=== PATIENT | female | born 1990 | race Caucasian/White ===

== ENCOUNTER → 2017-06-11 | Outpatient (CLI) | payer OTHER ==
--- NOTE | 2017-06-11 13:35 | MR ---
EXAMINATION TYPE: MR knee LT wo con DATE OF EXAM: 06/11/2017 COMPARISON: Radiographs 05/21/2017 HISTORY: 27-year-old female with left knee pain TECHNIQUE: Multiplanar, multisequence imaging of the left knee is performed without IV contrast. FINDINGS: The ACL appears torn. There is anterior tibial translation. Edema on either side of the intact MCL. PCL appears intact. There is thickening and intermediate signal involving the femoral attachment of t he LCL proper but the LCL complex otherwise appears intact. The medial meniscus is diffusely degenerative and torn with a bucket-handle fragment flipped anterior ly. There seems to be mild thinning of articular cartilage in the medial compartment and there is als o a subchondral impaction fracture of the mid peripheral aspect of the medial tibial plateau measurin g 1.4 cm wide and 1.6 cm AP with surrounding bone marrow and soft tissue edema. This seems to result in minimal 1 to 2 mm of articular surface depression. There appears to be a large radial tear of the posterior horn of the lateral meniscus near the attach ment of the meniscofemoral ligament. Lateral compartment and patellofemoral compartment articular cartilage appears maintained. Moderate to large knee joint effusion and a moderate-sized leaking Blackmon's cyst measuring 5.6 cm. Extensor mechanism is intact. Nonspecific anterior and infrapatellar soft tissue swelling. Minimal popliteal artery anatomy with mild diffuse muscular atrophy. Patchy red marrow hyperplasia is present compatible with patient's young age. IMPRESSION: 1 ACL tear. 2. Grade 1 MCL sprain and additional grade 1 sprain of the femoral attachment of the LCL proper. 3. Diffusely torn medial meniscus with a bucket-handle fragment flipped anteriorly. 4. Subchondral impaction fracture mid peripheral medial tibial plateau measuring 1.4 x 1.6 cm. Slight articular surface depression of 1 to 2 mm. 5. Large radial tear posterior horn lateral meniscus. 6. Moderate to large knee joint effusion and a moderate-sized leaking Blackmon's cyst. 7. Mild diffuse muscular atrophy.
== END | disposition home or self-care (01) ==
LOC: RADMRIMAIN 11:13
PROVIDERS: ATTEND Orthopaedic Surgery
DX: S83.212A Bucket-handle tear of medial meniscus, current injury, left knee, initial encounter (principal); S83.512A Sprain of anterior cruciate ligament of left knee, initial encounter; S83.412A Sprain of medial collateral ligament of left knee, initial encounter; S83.282A Other tear of lateral meniscus, current injury, left knee, initial encounter; M25.462 Effusion, left knee; M71.22 Synovial cyst of popliteal space [Baker], left knee; S82.142A Displaced bicondylar fracture of left tibia, initial encounter for closed fracture

== ENCOUNTER → 2017-08-20 | Outpatient (CLI) | payer OTHER ==
[2017-08-20 14:40] LABS: Basophils # (A) 0.1 k/uL (0-0.2); Basophils % (A) 1 %; Eosinophils # (A) 0.4 k/uL (0-0.7); Eosinophils % (A) 3 %; HGB 14.3 gm/dL (11.4-16.0); Lymphocytes # (A) 2.1 k/uL (1.0-4.8); Lymphocytes % (A) 18 %; MCH 27.6 pg (25.0-35.0); MCHC 32.4 g/dL (31.0-37.0); MCV 85.3 fL (80.0-100.0); Mean Platelet Volume 8.7; Monocytes # (A) 0.6 k/uL (0-1.0); Monocytes % (A) 5 %; Neutrophils # (A) 8.7 k/uL (1.3-7.7); Neutrophils % (A) 73 %; Platelet Count 278 k/uL (150-450); RBC 5.16 m/uL (3.80-5.40); RDW 13.3 % (11.5-15.5)
[2017-08-20 14:42] LABS: INR 1.1 (<1.2); Prothrombin Time 10.4 sec (9.0-12.0)
[2017-08-20 15:06] LABS: Potassium 4.5 mmol/L (3.5-5.1)
== END | disposition home or self-care (01) ==
LOC: LABPAT 14:01
PROVIDERS: ATTEND Orthopaedic Surgery
DX: Z01.812 Encounter for preprocedural laboratory examination (principal); M23.92 Unspecified internal derangement of left knee
CPT/HCPCS: 36415; 80051; 85025; 85610

== ENCOUNTER 2017-08-25 06:47 | Day surgery (SDC) | payer OTHER ==
--- NOTE | 2017-08-16 10:06 | HP ---
HISTORY AND PHYSICAL CHIEF COMPLAINT: Left knee pain. HISTORY OF PRESENT ILLNESS: The patient is a 27-year-old, [id number] mom, who presents with left knee pain after initial injury on March 29, 2017. She had a twisting injury. She notes locking, giving way and pain ever since. She is having a difficult time. She notes she is limping. She denies previous problems. PAST MEDICAL HISTORY: Negative. PAST SURGICAL HISTORY: Significant for section. CURRENT MEDICATIONS: None. ALLERGIES: She denies drug allergies. FAMILY HISTORY: Significant for diabetes and cancer. SOCIAL HISTORY: Significant for 1/2 pack per day tobacco use. REVIEW OF SYSTEMS: Sixteen point review of systems otherwise reviewed and is noncontributory. PHYSICAL EXAMINATION: On examination, the patient is approximately 5 foot 6, 320 pounds of endomorphic habitus. HEENT exam is nonfocal. NECK: Supple. She has painless passive motion of her left hip. Straight leg raise is negative. Active motion left knee -8 to 105 degrees of flexion. She has a moderate effusion. She is tender about the medial joint line. Collaterals are stable. Mehnaz's 1+ with a soft endpoint. Destiny's elicits medial pain. Her distal neurovascular appears intact in the left lower extremity. MRI report for the left knee on 06/11/2017 shows a bucket-handle tear of the medial meniscus along with ACL rupture and lateral meniscal tear. IMPRESSION: 1. Internal derangement left knee with symptomatic medial lateral meniscal tears. 2. Left knee ACL rupture. 3. Increased body mass index. RECOMMENDATIONS: I talked to the patient at length regarding her treatment options. At this point, she is having significant pain and mechanical symptoms that limit her. After thorough discussion, she opts to proceed with surgery. We will plan to proceed with arthroscopic evaluation with probable partial medial and lateral meniscectomy in addition to ACL debridement. We will likely perform that as an outpatient procedure. Risks and benefits were discussed at length in layman's terms. MMODL / IJN: [id number] /
[2017-08-24 08:43] VITALS: BMI 53.2
[~2017-08-25 06:47] MED LIST: DEXAMETHASONE SOD PHOSPHATE 10 MG/ML 1 ML VIAL IV ONE; LACTATED RINGERS 1,000 ML IV SCH; LIDOCAINE 1% 20 ML VIAL (10MG/ML) FOR IV START INTRADERMA PRN; MIDAZOLAM 2 MG/2 ML VIAL IV PRN; ONDANSETRON 4 MG/2 ML VIAL IVP ONE; SCOPOLAMINE 1.5MG/72HR PATCH TRANSDERM ONE
[2017-08-25] MEDS ORDERED: LIDOCAINE 1% INJ 10MG/ML (20 ML MDV) ONE (07:38)
[2017-08-25] MEDS ORDERED: PROPOFOL 10 MG/ML 20 ML VIAL IV ONE (07:38)
[2017-08-25] MEDS ORDERED: MIDAZOLAM 2 MG/2 ML VIAL ONE (07:38)
[2017-08-25] MEDS ORDERED: ceFAZolin 1,000 MG/50 ML BAG (PMX) IVPB ONE (07:38)
[2017-08-25] MEDS ORDERED: SUCCINYLCHOLINE CHLORIDE VIAL 200 MG/10 ML VIAL IV ONE (07:38)
[2017-08-25] MEDS ORDERED: fentaNYL (PF) 50 MCG/ML 2 ML AMP ONE (07:38)
[2017-08-25] MEDS ORDERED: EPINEPHrine (PF) 1 ML in SODIUM CHLORIDE 0.9% IRRIGATIO 3,000 ML IRRIGATION ONE (08:00)
--- NOTE | 2017-08-25 08:38 | P.OP ---
Date of Procedure: 08/25/17 Preoperative Diagnosis: Left knee internal derangement Postoperative Diagnosis: Left knee bucket-handle tear medial meniscus, lateral meniscal tear, ACL rupture , reactive synovitis Procedure(s) Performed: Left knee arthroscopic partial medial meniscectomy/partial lateral meniscectomy/ ACL debridement/partial synovectomy of the medial, lateral, and patellofemoral compartments Anesthesia: LUISA Surgeon: Damon Victoria Estimated Blood Loss (ml): 10 Pathology: none sent Condition: stable Disposition: PACU Indications for Procedure: The patient's a 27-year-old female who presents with progressive left knee pain and mechanical symptoms after a previous injury. Clinically she is noted of evidence of a symptomatic medial meniscal tear. A discussion of the risks and benefits of operative intervention versus continued conservative measures was made with patient. She opted to proceed with surgery. Operative risks to include infection, neurovascular injury, development of blood clots, possible incomplete resolution of symptoms, possible worsening symptoms and need for subsequent procedures was discussed. Informed consent was obtained. Operative Findings: As below Description of Procedure: The patient was brought to the operating room, and after induction of general anesthesia, I examined the left knee. Collaterals were stable, Mehnaz was 2+ with soft endpoint, pivot shift was positive, and posterior drawer was negative. The left lower extremity was prepped and draped in a normal fashion. A superior lateral portal was made through a 3 mm skin incision superior and lateral to the patella. This was used for outflow. A large effusion was encountered. A lateral portal was made through a 5 mm vertical skin incision lateral to the patella tendon above the joint. Diagnostic arthroscopy was performed. A medial portals made through a similar incision medial to the patella tendon above the joint line. On inspection of the medial compartment, a locked bucket-handle tear involving the medial meniscus was noted. This was debrided back to stable base with straight baskets and a motorized shaver. The edges were contoured. The remaining medial meniscus was stable and intact. Grade 2 chondral changes were noted diffusely medial compartment. Reactive synovitis involving anterior medial compartment was debrided with motorized shaver. On inspection the notch, the anterior cruciate ligament appeared to be ruptured off the lateral wall. A portion this was debrided back to a stable base. On inspection lateral compartment, reactive synovitis involving anterolateral compartment was debrided with a motorized shaver. A lateral meniscal tear was noted in the middle one third and this was debrided back to stable base with a motorized shaver. The remaining lateral meniscus was stable and intact. On inspection of the patellofemoral articulation, there was marked synovitis debrided with motorized shaver. No significant chondral injury involving the patellofemoral articular she was noted. The gutters were clear of debris. The knee was thoroughly irrigated. The portals were closed with Steri-Strips. A sterile dressing was applied in addition to a compression stocking. The patient was awoken from general anesthesia and transferred to the recovery room in good condition. Blood loss was estimated at 10 mL. No complications were incurred.
[2017-08-25 08:44] VITALS: TEMP 97.1
[2017-08-25] MEDS: MORPHINE SULFATE 2 MG/ML SYRINGE IV PRN ×4 (08:50→09:10)
[2017-08-25 08:57] VITALS: RESP 16
[2017-08-25 10:09] VITALS: BP 142/61; PULSE 88
== END 2017-08-25 10:23 | disposition home or self-care (01) ==
LOC: OR 06:47
PROVIDERS: ATTEND Orthopaedic Surgery
DX: M23.232 Derangement of other medial meniscus due to old tear or injury, left knee (principal); M23.201 Derangement of unspecified lateral meniscus due to old tear or injury, left knee; M23.8X2 Other internal derangements of left knee; M65.862 Other synovitis and tenosynovitis, left lower leg; F17.210 Nicotine dependence, cigarettes, uncomplicated
CPT/HCPCS: 81025; 29880; J2250; J0330; J1100; J2405; J0171; J2001; J3010; J2270; J0690; J2704